=== PATIENT | male | born 1990 | race Caucasian/White ===

== ENCOUNTER 2019-05-25 05:15 | Emergency (ER) | payer MEDICAID ==
[~2019-05-25] VITALS: Ht 180.3 cm; Wt 86.3 kg
[~2019-05-25 05:15] MED LIST: FOLI-17 PO; MAGN400T50 PO; MULT-750 PO; ONDA4TAB13 SL; PANT40TA5 PO; THIA100T67 PO; TRAM50TA2 PO
[2019-05-25] MEDS ORDERED: SODIUM CHLORIDE FLUSH 10ML SYR IVF ONE (05:30)
[2019-05-25] MEDS ORDERED: ONDANSETRON 2MG/ML, 2ML IVPush ONE (05:30)
[2019-05-25] MEDS ORDERED: MORPHINE SULFATE 4 MG/ML, 1ML ONE ×2 (05:34→06:06)
[2019-05-25] MEDS ORDERED: ONDANSETRON 2MG/ML, 2ML ONE (05:34)
[2019-05-25] MEDS: MORPHINE SULFATE 4 MG/ML, 1ML IVPush PRN ×2 (05:47→06:11)
[2019-05-25 05:57] LABS: BASOPHILS # (AUTO) 0.04 x10^3/uL (0-0.1); BASOPHILS % (AUTO) 1 % (0-1); EOSINOPHILS # (AUTO) 0.02 x10^3/uL (0-0.4); EOSINOPHILS % (AUTO) 0 % (1-7); LYMPHOCYTES # (AUTO) 1.61 x10^3/uL (1-3.4); LYMPHOCYTES % (AUTO) 26 % (22-44); MD NO; MEAN CORPUSCULAR HEMOGLOBIN 31.1 pg (27.5-34.5); MEAN CORPUSCULAR HGB CONC 33.9 g/dL (33.2-36.2); MEAN CORPUSCULAR VOLUME 91.6 fL (81-97); MEAN PLATELET VOLUME 8.2 fL (7.4-10.4); MONOCYTES # (AUTO) 0.82 x10^3/uL (0.2-0.8); MONOCYTES % (AUTO) 13 % (2-9); NEUTROPHILS # (AUTO) 3.72 x10^3/uL (1.8-6.8); NEUTROPHILS % (AUTO) 60 % (42-75); PLATELET COUNT 291 x10^3/uL (130-400); RED BLOOD COUNT 4.82 x10^6/uL (4.38-5.82); RED CELL DISTRIBUTION WIDTH 13.3 % (9.4-14.8)
[2019-05-25] MEDS ORDERED: SODIUM CHLORIDE 0.9% 1,000ML IVBOLUS ONE (06:00)
[2019-05-25 06:03] LABS: ALBUMIN 3.9 g/dL (3.4-5.0); ANION GAP 11 mmol/L (5-15); CALCIUM 8.9 mg/dL (8.5-10.1); CHLORIDE 102 mmol/L (98-107)
[2019-05-25 06:07] LABS: ALANINE AMINOTRANSFERASE 42 U/L (12-78); ALKALINE PHOSPHATASE 81 U/L (45-117); BILIRUBIN,TOTAL 0.9 mg/dL (0.2-1.0); CREATININE 0.82 mg/dL (0.7-1.3)
[2019-05-25] MEDS ORDERED: MAALOX/HYOSCYAMINE/LIDOCAINE 45 ML BTL ONE (06:28)
[2019-05-25] MEDS ORDERED: MAALOX/HYOSCYAMINE/LIDOCAINE 45 ML BTL PO ONE (06:30)
--- NOTE | 2019-05-25 06:39 | NUR ---
PT RESTING COMFORTABLY. SO AT BEDSIDE. MONITOR IN PLACE.
[2019-05-25] MEDS ORDERED: OMNIPAQUE 350 MG/ML, 100ML BOTTLE ONE (06:42)
[2019-05-25 06:51] VITALS: BP 131/66
[2019-05-25 06:59] LABS: MICROSCOPIC INDICATED
[2019-05-25 07:01] LABS: CULTURE INDICATED? NO
--- NOTE | 2019-05-25 07:10 | NUR ---
ALL RESULTS BACK AT THIS TIME. CHART UP FOR RECHECK. PT RESTING IN ROOM WITH SO AT BS. NO NEEDS EXPRESSED.
--- NOTE | 2019-05-25 07:30 | NUR ---
PT STATES INCREASING PAIN "BETWEEN LEGS." PT STATES HE ISN'T READY FRO DC. HITESH COX AND CAYDEN SALMERON NOTIFIED. AWAITING FURTHER ORDERS OR DISPO.
--- NOTE | 2019-05-25 07:43 | NUR ---
PER DR. SALMERON, PLAN FOR MEDS AND DC.
[2019-05-25] MEDS ORDERED: PANTOPRAZOLE 40 MG IV ONE (07:47)
[2019-05-25] MEDS ORDERED: PANTOPRAZOLE 40 MG IV IVPush ONE (08:00)
== END 2019-05-25 08:10 | disposition home or self-care (01) ==
LOC: ED 06:07
DX: K29.01 Acute gastritis with bleeding (principal); R11.2 Nausea with vomiting, unspecified
CPT/HCPCS: 36415; 74177; 80053; 81001; 83690; 85025; 93005; 96361; 96374; 96375; 99285; C9113; J2270; J2405; J7030; Q9967

== ENCOUNTER 2019-05-25 13:16 | Emergency (ER) | payer MEDICAID ==
[~2019-05-25] VITALS: Ht 180.3 cm; Wt 86.5 kg
[2019-05-25] MEDS ORDERED: ONDANSETRON ODT 4 MG ONE (14:15)
[2019-05-25] MEDS ORDERED: ONDANSETRON ODT 4 MG PO ONE (14:30)
--- NOTE | 2019-05-25 14:34 | NUR ---
PT PROVIDED WITH ICE WATER FOR PO CHALLENGE. DENIES ANY CURRENT NAUSEA POST MEDICATION.
--- NOTE | 2019-05-25 15:01 | NUR ---
PT DRANK ALL OF HIS WATER, HAS HAD NO EMESIS. STATES HE STILL FEELS "ACHY" IN HIS THIGHS, BUT DENIES NAUSEA.
--- NOTE | 2019-05-25 15:19 | NUR ---
REPORT RECEIVED FROM ADAN WINSLOW.
[2019-05-25 15:29] VITALS: BP 142/72
== END 2019-05-25 15:43 | disposition home or self-care (01) ==
LOC: ED 13:39
DX: K29.20 Alcoholic gastritis without bleeding (principal); F10.10 Alcohol abuse, uncomplicated; F17.200 Nicotine dependence, unspecified, uncomplicated; Y90.0 Blood alcohol level of less than 20 mg/100 ml
CPT/HCPCS: 80047; 99283; Q0162

== ENCOUNTER 2019-06-10 18:04 | Emergency (ER) | payer MEDICAID ==
[~2019-06-10] VITALS: Ht 180.3 cm; Wt 83.5 kg
[2019-06-10 18:06] VITALS: BP 145/89
[2019-06-10] MEDS ORDERED: FAMOTIDINE 20 MG/2 ML ONE (18:57)
[2019-06-10] MEDS ORDERED: HYDROmorphone 1 MG/ML, 1ML INJ ONE (18:57)
[2019-06-10] MEDS ORDERED: LORazepam 2 MG/ML, 1ML ONE (18:57)
[2019-06-10] MEDS ORDERED: MAALOX/HYOSCYAMINE/LIDOCAINE 45 ML BTL ONE (18:57)
[2019-06-10] MEDS ORDERED: HYDROmorphone 2 MG/ML, 1ML IVPush ONE (19:00)
[2019-06-10] MEDS ORDERED: SODIUM CHLORIDE FLUSH 10ML SYR IVF ONE (19:00)
[2019-06-10] MEDS ORDERED: LORazepam 2 MG/ML, 1ML IV ONE (19:00)
[2019-06-10] MEDS ORDERED: FAMOTIDINE 20 MG/2 ML IVPush ONE (19:00)
[2019-06-10] MEDS ORDERED: SODIUM CHLORIDE 0.9% 1,000ML IVBOLUS ONE (19:00)
[2019-06-10] MEDS ORDERED: MAALOX/HYOSCYAMINE/LIDOCAINE 45 ML BTL PO ONE (19:00)
[2019-06-10 19:06] LABS: ALANINE AMINOTRANSFERASE 110 U/L (12-78); ALBUMIN 4.6 g/dL (3.4-5.0); ANION GAP 19 mmol/L (5-15); CALCIUM 9.5 mg/dL (8.5-10.1); CHLORIDE 98 mmol/L (98-107); CREATININE 0.95 mg/dL (0.7-1.3)
[2019-06-10 19:08] LABS: ALKALINE PHOSPHATASE 98 U/L (45-117); TOTAL PROTEIN 8.7 g/dL (6.4-8.2)
[2019-06-10 19:10] LABS: BASOPHILS # (AUTO) 0.05 x10^3/uL (0-0.1); BASOPHILS % (AUTO) 1 % (0-1); EOSINOPHILS % (AUTO) 0 % (1-7); LYMPHOCYTES # (AUTO) 0.91 x10^3/uL (1-3.4); LYMPHOCYTES % (AUTO) 11 % (22-44); MD NO; MEAN CORPUSCULAR HEMOGLOBIN 31.3 pg (27.5-34.5); MEAN PLATELET VOLUME 8.4 fL (7.4-10.4); MONOCYTES # (AUTO) 0.44 x10^3/uL (0.2-0.8); MONOCYTES % (AUTO) 5 % (2-9); NEUTROPHILS # (AUTO) 7.16 x10^3/uL (1.8-6.8); NEUTROPHILS % (AUTO) 84 % (42-75); PLATELET COUNT 280 x10^3/uL (130-400); RED BLOOD COUNT 4.98 x10^6/uL (4.38-5.82); RED CELL DISTRIBUTION WIDTH 13.8 % (9.4-14.8)
== END 2019-06-10 20:05 | disposition home or self-care (01) ==
LOC: ED 18:29
DX: K20.9 Esophagitis, unspecified (principal); R07.89 Other chest pain; R11.2 Nausea with vomiting, unspecified; F10.129 Alcohol abuse with intoxication, unspecified; Y90.9 Presence of alcohol in blood, level not specified
CPT/HCPCS: 36415; 80053; 80307; 83690; 83735; 85025; 93005; 96361; 96374; 96375; 99284; J1170; J2060; J3490; J7030

== ENCOUNTER 2019-07-03 10:28 | Emergency (ER) | payer MEDICAID ==
[~2019-07-03] VITALS: Ht 180.3 cm; Wt 97.8 kg
--- NOTE | 2019-07-03 10:43 | NUR ---
PT CAME IN CO RLQ ABD PAIN X 5 DAYS. PT STATES HE HAS URINATED BLOOD. PT DENIES TRAUMA. PROVIDER IS BEDSIDE FOR ASSESSMENT.
[2019-07-03] MEDS ORDERED: KETOROLAC 30 MG/1 ML ONE (10:47)
[2019-07-03] MEDS ORDERED: ONDANSETRON ODT 4 MG ONE (10:47)
[2019-07-03] MEDS ORDERED: KETOROLAC 30 MG/1 ML IM ONE (11:00)
[2019-07-03] MEDS ORDERED: ONDANSETRON ODT 4 MG PO ONE (11:00)
[2019-07-03 11:23] LABS: BASOPHILS # (AUTO) 0.05 x10^3/uL (0-0.1); BASOPHILS % (AUTO) 1 % (0-1); EOSINOPHILS # (AUTO) 0.01 x10^3/uL (0-0.4); EOSINOPHILS % (AUTO) 0 % (1-7); LYMPHOCYTES # (AUTO) 0.91 x10^3/uL (1-3.4); LYMPHOCYTES % (AUTO) 14 % (22-44); MD NO; MEAN CORPUSCULAR HEMOGLOBIN 31.2 pg (27.5-34.5); MEAN CORPUSCULAR HGB CONC 33.4 g/dL (33.2-36.2); MEAN CORPUSCULAR VOLUME 93.4 fL (81-97); MEAN PLATELET VOLUME 8.4 fL (7.4-10.4); MONOCYTES # (AUTO) 0.44 x10^3/uL (0.2-0.8); MONOCYTES % (AUTO) 7 % (2-9); NEUTROPHILS # (AUTO) 4.91 x10^3/uL (1.8-6.8); NEUTROPHILS % (AUTO) 78 % (42-75); PLATELET COUNT 236 x10^3/uL (130-400); RED BLOOD COUNT 5.27 x10^6/uL (4.38-5.82); RED CELL DISTRIBUTION WIDTH 14.9 % (9.4-14.8)
[2019-07-03 11:34] LABS: ALBUMIN 4.5 g/dL (3.4-5.0); CHLORIDE 103 mmol/L (98-107)
[2019-07-03 11:36] LABS: ANION GAP 14 mmol/L (5-15); CALCIUM 9.5 mg/dL (8.5-10.1)
[2019-07-03] MEDS ORDERED: LORazepam 1MG TABLET ONE (11:48)
--- NOTE | 2019-07-03 11:53 | NUR ---
PT MEDICATED PER MAR
[2019-07-03] MEDS ORDERED: LORazepam 1MG TABLET PO ONE (12:00)
[2019-07-03 12:38] LABS: MICROSCOPIC AUTO
[2019-07-03 12:39] LABS: CULTURE INDICATED? YES
--- NOTE | 2019-07-03 12:48 | NUR ---
PT RETURNED FROM US. RESTING IN [facility]. VSS.
[2019-07-03] MEDS ORDERED: AZITHROMYCIN 500 MG TABLET PO ONE (13:00)
[2019-07-03] MEDS ORDERED: CEFTRIAXONE 250 MG IM ONE (13:00)
[2019-07-03] MEDS ORDERED: AZITHROMYCIN 500 MG TABLET ONE (13:08)
[2019-07-03] MEDS ORDERED: CEFTRIAXONE 1,000 MG ONE (13:08)
[2019-07-03 13:40] VITALS: BP 128/88
--- NOTE | 2019-07-03 13:41 | NUR ---
PT GIVEN DC INTSTRUCTIONS. PT VERBALIZED UNDERSTANDING
== END 2019-07-03 14:00 | disposition home or self-care (01) ==
LOC: ED 11:28
DX: R30.0 Dysuria (principal); R31.9 Hematuria, unspecified; K76.0 Fatty (change of) liver, not elsewhere classified; M43.06 Spondylolysis, lumbar region
CPT/HCPCS: 36415; 74176; 76870; 80048; 81001; 82040; 85025; 87086; 87491; 87591; 96372; 99285; J0696; J1885; Q0162

== ENCOUNTER 2020-03-10 10:27 | Inpatient (IN) | payer MEDICAID ==
[~2020-03-10] VITALS: Ht 180.3 cm; Wt 93.4 kg
[~2020-03-10 10:27] MED LIST changes: -PANT40TA5 PO; +PANT40TA6 PO
--- NOTE | 2020-03-10 11:00 | NUR ---
director of strategic initiatives note: Pt to room from lobby.
--- NOTE | 2020-03-10 11:21 | NUR ---
PT COMES IN C/O N/V, TREMORS. STATES HE IS TRYING TO QUIT DRINKING AND IS GOING THROUGHT WITHDRAWALS. 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 STATES HIS LAST DRINK WAS YESTERDAY MORNING AND WAS 4-5OZ OF VODKA. MONITORS CONNECTED. CALL LIGHT W/IN REACH.
--- NOTE | 2020-03-10 11:29 | NUR ---
PT STATES HE IS UNABLE TO KEEP ANY LIQUID OR FOOD DOWN. PT STATES HE HAS BEEN VOMITING MULTIPLE TIMES IN THE PAST 14HOURS. STATES HX OF PANCREATITIS AND IS C/O RIGHT UPPER QUADRANT 7/10 ABDOMINAL PAIN.
[2020-03-10] MEDS ORDERED: PANTOPRAZOLE 40 MG IV ONE (11:52)
[2020-03-10] MEDS ORDERED: ONDANSETRON 2MG/ML, 2ML ONE ×2 (11:52→13:39)
[2020-03-10] MEDS ORDERED: LORazepam 2 MG/ML, 1ML ONE (11:53)
[2020-03-10] MEDS ORDERED: SODIUM CHLORIDE 0.9% 1,000ML IVBOLUS ONE ×2 (12:00→13:30)
[2020-03-10] MEDS ORDERED: THIAMINE 100MG TABLET PO ONE (12:00)
[2020-03-10] MEDS ORDERED: SODIUM CHLORIDE FLUSH 10ML SYR IVF ONE (12:00)
[2020-03-10] MEDS ORDERED: LORazepam 2 MG/ML, 1ML IVPush PRN (12:00)
[2020-03-10] MEDS ORDERED: ONDANSETRON 2MG/ML, 2ML IVPush ONE ×2 (12:00→14:00)
[2020-03-10] MEDS ORDERED: PANTOPRAZOLE 40 MG IV IVPush SCH (12:00)
[2020-03-10] MEDS ORDERED: THIAMINE 100MG TABLET ONE (12:06)
[2020-03-10 12:16] LABS: BASOPHILS % (AUTO) 1 % (0-1); EOSINOPHILS % (AUTO) 0 % (1-7); LYMPHOCYTES % (AUTO) 2 % (22-44); MEAN CORPUSCULAR HEMOGLOBIN 30.2 pg (27.5-34.5); MEAN CORPUSCULAR HGB CONC 33.9 g/dL (33.2-36.2); MEAN PLATELET VOLUME 8.5 fL (7.4-10.4); MONOCYTES % (AUTO) 5 % (2-9); NEUTROPHILS % (AUTO) 93 % (42-75); PLATELET COUNT 311 x10^3/uL (130-400); RED BLOOD COUNT 5.29 x10^6/uL (4.38-5.82)
[2020-03-10 12:28] LABS: ALANINE AMINOTRANSFERASE 38 U/L (12-78); ALBUMIN 4.6 g/dL (3.4-5.0); CALCIUM 9.6 mg/dL (8.5-10.1); CHLORIDE 96 mmol/L (98-107); CREATININE 1.83 mg/dL (0.7-1.3)
[2020-03-10 12:30] LABS: ALKALINE PHOSPHATASE 84 U/L (45-117); BILIRUBIN,TOTAL 1.3 mg/dL (0.2-1.0); TOTAL PROTEIN 8.5 g/dL (6.4-8.2)
[2020-03-10 12:52] LABS: MD SCAN
[2020-03-10 13:04] LABS: ANION GAP 25 mmol/L (5-15)
[2020-03-10 13:13] LABS: ACETONE, SERUM Large (80mg/dL) (Negative)
[2020-03-10] MEDS ORDERED: SODIUM CHLORIDE 0.9% 1,000 ML IV ONE (13:30)
[2020-03-10] MEDS ORDERED: ACETAMINOPHEN 325 MG TABLET ONE (13:39)
--- NOTE | 2020-03-10 13:56 | NUR ---
PT SITTING UP IN BED. ORDERED MEDICATION ADMINISTERED. NAD. CALL LIGHT W/IN REACH. WILL CONTINUE TO MONITOR
[2020-03-10] MEDS ORDERED: ACETAMINOPHEN 325 MG TABLET PO ONE (14:00)
--- NOTE | 2020-03-10 14:16 | NUR ---
REPORT GIVEN TO MANPREET WINSLOW
[2020-03-10 14:54] VITALS: BP 133/77
[2020-03-10] MEDS ORDERED: ONDANSETRON ODT 4 MG PO PRN (15:30)
[2020-03-10] MEDS ORDERED: LORazepam 1MG TABLET PO PRN ×3 (15:30)
[2020-03-10] MEDS ORDERED: LABETALOL 5MG/ML, 20ML IVPush PRN (15:30)
[2020-03-10] MEDS ORDERED: ONDANSETRON 2MG/ML, 2ML IVPush PRN (15:30)
[2020-03-10] MEDS ORDERED: BISACODYL 10 MG SUPP PR PRN (15:30)
[2020-03-10] MEDS ORDERED: ACETAMINOPHEN 325 MG TABLET PO PRN (15:30)
[2020-03-10] MEDS ORDERED: POLYETHYLENE GLYCOL 17 GM PACKET PO PRN (15:30)
[2020-03-10] MEDS ORDERED: DOCUSATE 100 MG CAPSULE PO PRN (15:30)
[2020-03-10] MEDS ORDERED: PROMETHAZINE 25 MG/ML, 1ML IM PRN (15:30)
[2020-03-10] MEDS ORDERED: CHLORDIAZEPOXIDE 25 MG CAPSULE PO SCH (15:30)
[2020-03-10] MEDS ORDERED: LORazepam 2 MG/ML, 1ML IV PRN ×3 (15:30)
[2020-03-10] MEDS: CHLORDIAZEPOXIDE 25 MG CAPSULE PO SCH ×2 (15:43→21:44)
[2020-03-10] MEDS: HEPARIN 5,000 UNITS/ML, 1ML SQ SCH (15:43)
[2020-03-10] MEDS ORDERED: SODIUM CHLORIDE 0.9% IV SCH (16:00)
[2020-03-10] MEDS ORDERED: FOLIC ACID IV SCH (16:00)
[2020-03-10] MEDS ORDERED: THIAMINE 200 MG, FOLIC ACID 1 MG, MVI ADULT 10 ML in SODIUM CHLORIDE 0.9% 1,000 ML IV SCH (16:00)
[2020-03-10] MEDS ORDERED: THIAMINE IV SCH (16:00)
[2020-03-10] MEDS: MAALOX/HYOSCYAMINE/LIDOCAINE 45 ML BTL PO PRN (16:06)
[2020-03-10] MEDS: LORazepam 0.5MG TABLET PO PRN (17:10)
[2020-03-10 18:40] VITALS: BP 123/71
[2020-03-10 22:39] LABS: MICROSCOPIC AUTO
[2020-03-11] MEDS: MAALOX/HYOSCYAMINE/LIDOCAINE 45 ML BTL PO PRN ×3 (00:28→22:02)
[2020-03-11] MEDS: HEPARIN 5,000 UNITS/ML, 1ML SQ SCH ×4 (00:28→23:30)
[2020-03-11 01:11] VITALS: BP 130/76
[2020-03-11] MEDS: CHLORDIAZEPOXIDE 25 MG CAPSULE PO SCH ×4 (03:13→22:05)
[2020-03-11 05:23] LABS: BASOPHILS % (AUTO) 1 % (0-1); EOSINOPHILS % (AUTO) 0 % (1-7); LYMPHOCYTES % (AUTO) 10 % (22-44); MEAN CORPUSCULAR HEMOGLOBIN 30.7 pg (27.5-34.5); MEAN CORPUSCULAR HGB CONC 34.1 g/dL (33.2-36.2); MEAN PLATELET VOLUME 8.4 fL (7.4-10.4); MONOCYTES % (AUTO) 6 % (2-9); NEUTROPHILS % (AUTO) 83 % (42-75); PLATELET COUNT 216 x10^3/uL (130-400); RED BLOOD COUNT 4.67 x10^6/uL (4.38-5.82); RED CELL DISTRIBUTION WIDTH 14.3 % (9.4-14.8)
[2020-03-11 05:25] LABS: MD NO
[2020-03-11 05:31] LABS: ANION GAP 4 mmol/L (5-15); CALCIUM 8.9 mg/dL (8.5-10.1); CHLORIDE 108 mmol/L (98-107); CREATININE 1.26 mg/dL (0.7-1.3)
[2020-03-11] MEDS: PANTOPRAZOLE 40MG TABLET PO SCH (06:32)
[2020-03-11] MEDS ORDERED: MAGNESIUM SULFATE PMX 2GM/50ML 50 ML IV ONE (08:00)
[2020-03-11] MEDS ORDERED: POTASSIUM CHLORIDE 20 MEQ TAB.ER.PRT PO ONE (08:00)
[2020-03-11 08:05] VITALS: BP 132/83
[2020-03-11] MEDS ORDERED: LACTATED RINGERS 1,000 ML IV SCH (09:00)
[2020-03-11] MEDS: THIAMINE 100MG TABLET PO SCH ×2 (10:10→21:05)
[2020-03-11] MEDS: K-PHOS NEUTRAL 250MG TAB PO SCH ×2 (10:10→21:05)
[2020-03-11] MEDS: MULTIVITAMIN 1 TABLET PO SCH (10:10)
[2020-03-11] MEDS: FOLIC ACID 1 MG TABLET PO SCH (10:10)
[2020-03-11 12:53] VITALS: BP 130/84
[2020-03-11 21:17] VITALS: BP 123/81
[2020-03-12 02:03] VITALS: BP 126/80
[2020-03-12] MEDS: CHLORDIAZEPOXIDE 25 MG CAPSULE PO SCH ×4 (05:39→23:02)
[2020-03-12] MEDS: PANTOPRAZOLE 40MG TABLET PO SCH (05:39)
[2020-03-12 06:22] LABS: BASOPHILS % (AUTO) 1 % (0-1); EOSINOPHILS % (AUTO) 1 % (1-7); LYMPHOCYTES % (AUTO) 28 % (22-44); MEAN CORPUSCULAR HEMOGLOBIN 30.8 pg (27.5-34.5); MEAN CORPUSCULAR HGB CONC 34.3 g/dL (33.2-36.2); MEAN PLATELET VOLUME 8.9 fL (7.4-10.4); MONOCYTES % (AUTO) 9 % (2-9); NEUTROPHILS % (AUTO) 62 % (42-75); PLATELET COUNT 178 x10^3/uL (130-400); RED BLOOD COUNT 4.63 x10^6/uL (4.38-5.82)
[2020-03-12 06:28] LABS: MD NO
[2020-03-12 06:30] LABS: ANION GAP 6 mmol/L (5-15); CALCIUM 8.6 mg/dL (8.5-10.1); CHLORIDE 105 mmol/L (98-107); CREATININE 0.83 mg/dL (0.7-1.3)
[2020-03-12] MEDS: THIAMINE 100MG TABLET PO SCH ×2 (08:12→20:50)
[2020-03-12] MEDS: MULTIVITAMIN 1 TABLET PO SCH (08:12)
[2020-03-12] MEDS: K-PHOS NEUTRAL 250MG TAB PO SCH ×2 (08:12→20:50)
[2020-03-12] MEDS: FOLIC ACID 1 MG TABLET PO SCH (08:13)
[2020-03-12] MEDS: HEPARIN 5,000 UNITS/ML, 1ML SQ SCH ×2 (08:13→16:31)
[2020-03-12 08:20] VITALS: BP 133/84
[2020-03-12 10:02] VITALS: BP 133/84
[2020-03-12] MEDS ORDERED: POTASSIUM PHOSPHATE 22 MEQ in SODIUM CHLORIDE 0.9% 250 ML IV ONE (10:30)
[2020-03-12 14:15] VITALS: BP 128/80
[2020-03-12] MEDS: LORazepam 0.5MG TABLET PO PRN (16:06)
[2020-03-12] MEDS ORDERED: POTASSIUM CHLORIDE 20 MEQ TAB.ER.PRT PO SCH (17:00)
[2020-03-12 20:47] VITALS: BP 133/80
[2020-03-13 00:45] VITALS: BP 117/77
[2020-03-13] MEDS: LORazepam 0.5MG TABLET PO PRN (00:49)
[2020-03-13] MEDS: HEPARIN 5,000 UNITS/ML, 1ML SQ SCH ×2 (00:49→07:20)
[2020-03-13] MEDS ORDERED: PROTONIX MC SCH (02:30)
[2020-03-13] MEDS: PANTOPRAZOLE 40MG TABLET PO SCH (05:30)
[2020-03-13] MEDS: CHLORDIAZEPOXIDE 25 MG CAPSULE PO SCH (05:30)
[2020-03-13 07:18] VITALS: BP 129/85
[2020-03-13] MEDS: FOLIC ACID 1 MG TABLET PO SCH (07:20)
[2020-03-13] MEDS: THIAMINE 100MG TABLET PO SCH (07:20)
[2020-03-13] MEDS: MULTIVITAMIN 1 TABLET PO SCH (07:20)
== END 2020-03-13 11:00 | disposition home or self-care (01) | DRG 683 ==
LOC: ED 12:24 → EDIP 13:45 → 5SO 15:09 → 3N 03-11 10:29 → DCLOUNGE 03-13 10:55
PROVIDERS: ADMIT Hospitalist; ATTEND Hospitalist
DX: N17.9 Acute kidney failure, unspecified (principal); E87.2 Acidosis; F10.139 Alcohol abuse with withdrawal, unspecified; E83.39 Other disorders of phosphorus metabolism; E83.42 Hypomagnesemia; F17.220 Nicotine dependence, chewing tobacco, uncomplicated; E86.0 Dehydration; E86.1 Hypovolemia; E87.6 Hypokalemia; F12.90 Cannabis use, unspecified, uncomplicated; F41.9 Anxiety disorder, unspecified; I10 Essential (primary) hypertension; K76.0 Fatty (change of) liver, not elsewhere classified; R00.0 Tachycardia, unspecified; R73.9 Hyperglycemia, unspecified; D72.829 Elevated white blood cell count, unspecified; K29.20 Alcoholic gastritis without bleeding
CPT/HCPCS: 36415; 71045; 80048; 80053; 80320; 81001; 82010; 83036; 83605; 83690; 83735; 84100; 85025; 93005; G0378; J1644; J2405; J3411; C9113; G0480; J2060; J3475; J7030; J7050; J7120

== ENCOUNTER 2020-06-04 03:39 | Emergency (ER) | payer MEDICAID ==
[~2020-06-04] VITALS: Ht 180.3 cm; Wt 89.1 kg
[~2020-06-04 03:39] MED LIST changes: -FOLI-17 PO; +FOLI1TAB32 PO; +MULT-482 PO; -MULT-750 PO
--- NOTE | 2020-06-04 03:55 | NUR ---
asumed care of pt. pt BIB [facility] from home c/o RUQ pain and ETOH withdrawl. per pt, he has a hx of intermittent binge drinking and his lst ETOH drink ws 15 hours ago. pt is A&O x4. states that he is having soem nausea and feeling a little dizzy/having vertigo. pt reports that this is the way that he feels sometimes before a withdrawl seizure. no tremulous activity noted. no vomiting. pink warm and dry. no resp. distress. no family at bedside seizure precautions put into place for pt safety
[2020-06-04] MEDS ORDERED: LORazepam 2 MG/ML, 1ML IVPush PRN (04:00)
[2020-06-04] MEDS ORDERED: LORazepam 2 MG/ML, 1ML IVPush ONE (04:00)
[2020-06-04] MEDS ORDERED: THIAMINE 100 MG/ML, 2ML IM ONE (04:00)
[2020-06-04] MEDS ORDERED: SODIUM CHLORIDE FLUSH 10ML SYR IVF ONE (04:00)
[2020-06-04] MEDS ORDERED: ONDANSETRON 2MG/ML, 2ML IVPush ONE (04:00)
[2020-06-04] MEDS ORDERED: PROMETHAZINE 25 MG/ML, 1ML IM ONE (04:00)
[2020-06-04] MEDS ORDERED: SODIUM CHLORIDE 0.9% 1,000ML IVBOLUS ONE (04:00)
[2020-06-04 04:01] LABS: BASOPHILS % (AUTO) 1 % (0-1); EOSINOPHILS % (AUTO) 0 % (1-7); LYMPHOCYTES % (AUTO) 6 % (22-44); MEAN CORPUSCULAR HEMOGLOBIN 29.8 pg (27.5-34.5); MEAN CORPUSCULAR HGB CONC 33.9 g/dL (33.2-36.2); MEAN PLATELET VOLUME 8.6 fL (7.4-10.4); MONOCYTES % (AUTO) 3 % (2-9); NEUTROPHILS % (AUTO) 91 % (42-75); PLATELET COUNT 279 x10^3/uL (130-400); RED BLOOD COUNT 5.47 x10^6/uL (4.38-5.82); RED CELL DISTRIBUTION WIDTH 14.5 % (9.4-14.8)
[2020-06-04 04:03] LABS: MD NO
[2020-06-04 04:09] LABS: ALANINE AMINOTRANSFERASE 160 U/L (12-78); ALBUMIN 4.7 g/dL (3.4-5.0); ANION GAP 22 mmol/L (5-15); CALCIUM 9.5 mg/dL (8.5-10.1); CHLORIDE 97 mmol/L (98-107); CREATININE 0.99 mg/dL (0.7-1.3)
[2020-06-04 04:12] LABS: ALKALINE PHOSPHATASE 95 U/L (45-117); BILIRUBIN,TOTAL 0.8 mg/dL (0.2-1.0); TOTAL PROTEIN 8.7 g/dL (6.4-8.2)
[2020-06-04 04:30] VITALS: BP 132/81
--- NOTE | 2020-06-04 04:30 | NUR ---
pt medicated per order. resting in position of comfort. pt updated on POC
[2020-06-04] MEDS ORDERED: ONDANSETRON 2MG/ML, 2ML ONE (04:32)
[2020-06-04] MEDS ORDERED: LORazepam 2 MG/ML, 1ML ONE (04:33)
--- NOTE | 2020-06-04 04:59 | NUR ---
IV infusing. report to Carlie WINSLOW
[2020-06-04] MEDS ORDERED: THIAMINE 100 MG/ML, 2ML ONE (05:11)
[2020-06-04] MEDS ORDERED: PROMETHAZINE 25 MG/ML, 1ML ONE ×2 (05:11→05:12)
[2020-06-04] MEDS ORDERED: MAALOX/HYOSCYAMINE/LIDOCAINE 45 ML BTL ONE (05:35)
[2020-06-04] MEDS ORDERED: MAALOX/HYOSCYAMINE/LIDOCAINE 45 ML BTL PO ONE (06:00)
== END 2020-06-04 06:05 | disposition home or self-care (01) ==
LOC: ED 05:21
DX: K29.20 Alcoholic gastritis without bleeding (principal); F10.220 Alcohol dependence with intoxication, uncomplicated; R11.2 Nausea with vomiting, unspecified; R42 Dizziness and giddiness; R10.13 Epigastric pain; Z87.891 Personal history of nicotine dependence; Y90.0 Blood alcohol level of less than 20 mg/100 ml
CPT/HCPCS: 36415; 80053; 80320; 83690; 85025; 96361; 96372; 96374; 96375; 99284; J2060; J2405; J2550; J3411; J7030; G0480

== ENCOUNTER 2020-11-13 15:33 | Inpatient (IN) | payer MEDICAID ==
[~2020-11-13] VITALS: Ht 180.3 cm; Wt 95.3 kg
[2020-11-13 16:24] LABS: BASOPHILS % (AUTO) 1 % (0-1); EOSINOPHILS % (AUTO) 0 % (1-7); LYMPHOCYTES % (AUTO) 4 % (22-44); MEAN CORPUSCULAR HEMOGLOBIN 31.5 pg (27.5-34.5); MEAN PLATELET VOLUME 8.7 fL (7.4-10.4); MONOCYTES % (AUTO) 3 % (2-9); NEUTROPHILS % (AUTO) 93 % (42-75); PLATELET COUNT 395 x10^3/uL (130-400); RED BLOOD COUNT 5.44 x10^6/uL (4.38-5.82); RED CELL DISTRIBUTION WIDTH 14.9 % (9.4-14.8)
[2020-11-13] MEDS ORDERED: LORazepam 1MG TABLET PO ONE (16:30)
[2020-11-13] MEDS ORDERED: THIAMINE 100MG TABLET PO ONE (16:30)
[2020-11-13 16:35] LABS: ALANINE AMINOTRANSFERASE 114 U/L (12-78); ALBUMIN 4.8 g/dL (3.4-5.0); ANION GAP 23 mmol/L (5-15); CALCIUM 10.2 mg/dL (8.5-10.1); CHLORIDE 89 mmol/L (98-107); CREATININE 1.17 mg/dL (0.7-1.3)
[2020-11-13 16:38] LABS: ALKALINE PHOSPHATASE 114 U/L (45-117); BILIRUBIN,TOTAL 0.8 mg/dL (0.2-1.0); TOTAL PROTEIN 9.9 g/dL (6.4-8.2)
[2020-11-13] MEDS ORDERED: LORazepam 1MG TABLET ONE (20:02)
[2020-11-13] MEDS ORDERED: THIAMINE 100MG TABLET ONE (20:03)
--- NOTE | 2020-11-13 20:30 | NUR ---
PT HERE FOR ETOH WITHDRAW SYMPTOMS. PT DAHIANA, HR 120'S-140'S, AND PT STATES "I FEEL LIKE IM CLOSE TO HAVING A SEIZURE SINCE I'VE HAD THEM IN THE PAST". STATES HE USUALLY DRINKS 2-3 PINTS A DAY BUT THIS AM ONLY HAD 1/2 PINT AND STATES " I WANT TO QUIT". PT WITH PLEASANT AFFECT. ORIENTED X 4.
--- NOTE | 2020-11-13 20:40 | NUR ---
Nohelia rogers in ED - 11/13/20 at 2042 by ALEXANDRO PT JOHNNY PARNELL ENOUTE TO PICK PT UP. HER NUMBER IS [phone]
--- NOTE | 2020-11-13 20:41 | NUR ---
CHARTED ON INCORRECT PT
[2020-11-13] MEDS ORDERED: LORazepam 2 MG/ML, 1ML IVPush ONE (21:30)
[2020-11-13] MEDS ORDERED: SODIUM CHLORIDE FLUSH 10ML SYR IVF ONE (21:30)
[2020-11-13] MEDS ORDERED: SODIUM CHLORIDE 0.9% 1,000ML IVBOLUS ONE ×2 (21:30→23:30)
[2020-11-13] MEDS ORDERED: LORazepam 2 MG/ML, 1ML ONE ×2 (21:55→23:30)
--- NOTE | 2020-11-13 22:00 | NUR ---
PT VOMITED MEDS "ABOUT 20 SECONDS AFTER I TOOK THEM". MD AWARE, HAS ORDER PLACED FOR IV MEDS.
--- NOTE | 2020-11-13 22:21 | NUR ---
PT HAS ABOUT 200 CC OF BLACK/MAROON EMESIS AT BEDSIDE. EMESIS TESTED WIH BLOOD, POSTIVIE ON OCCULT STRIP FOR BLOOD. AWARE. PT ALSO REPORTS "COFFEE GROUNDS VOMIT" AT HOME.
[2020-11-13] MEDS ORDERED: ONDANSETRON 2MG/ML, 2ML ONE (22:23)
[2020-11-13] MEDS ORDERED: ONDANSETRON 2MG/ML, 2ML IVPush ONE (22:30)
[2020-11-13] MEDS ORDERED: PANTOPRAZOLE 40 MG IV IVPush ONE (22:30)
[2020-11-13] MEDS ORDERED: PANTOPRAZOLE 40 MG IV ONE (23:17)
[2020-11-13] MEDS ORDERED: THIAMINE 200 MG in SODIUM CHLORIDE 0.9% 50 ML IV ONE (23:30)
[2020-11-13] MEDS ORDERED: PANTOPRAZOLE 80 MG in SODIUM CHLORIDE 0.9% 50 ML IV ONE (23:30)
[2020-11-13] MEDS: LORazepam 2 MG/ML, 1ML IVPush PRN (23:39)
--- NOTE | 2020-11-14 00:02 | NUR ---
PT NOW SLEEPING. RESP EVEN AND UNLABORED.
[2020-11-14] MEDS ORDERED: ONDANSETRON 2MG/ML, 2ML IVPush PRN (01:00)
[2020-11-14] MEDS ORDERED: POLYETHYLENE GLYCOL 17 GM PACKET PO PRN (01:00)
[2020-11-14] MEDS ORDERED: BISACODYL 10 MG SUPP PR PRN (01:00)
[2020-11-14] MEDS ORDERED: ACETAMINOPHEN 325 MG TABLET PO PRN (01:00)
[2020-11-14] MEDS ORDERED: CHLORDIAZEPOXIDE 25 MG CAPSULE PO PRN (01:00)
[2020-11-14] MEDS: SODIUM CHLORIDE 0.9% 1,000 ML IV SCH ×3 (01:11→23:59)
--- NOTE | 2020-11-14 02:00 | NUR ---
pt moved to hospital bed. pt also up to use restroom. has steady gait but shakey from withdraw.
[2020-11-14] MEDS ORDERED: LORazepam 2 MG/ML, 1ML ONE ×4 (02:17→21:05)
[2020-11-14] MEDS: LORazepam 2 MG/ML, 1ML IVPush PRN ×4 (02:19→21:07)
--- NOTE | 2020-11-14 02:24 | NUR ---
pt with c/o increased shakiness, ISLAS, "I feel like I could have a seizure but not a big one", and starting to see things that aren't there. HR 120's. pt states he has taken librium before and states it lasts longer then ativan. Spoke with Samara in pharmacy, unable to give librium due to hospital being out. CIWA done and medicated per emar.
--- NOTE | 2020-11-14 02:30 | NUR ---
PT REQUESTING JUICE. H20 AND JUICE GIVEN.
--- NOTE | 2020-11-14 02:33 | NUR ---
REPORTS FROM ALEX WINSLOW, PT CARE TRANSFERRED AT THIS TIME.
--- NOTE | 2020-11-14 02:35 | NUR ---
REPORT TO ARACELY WINSLOW
--- NOTE | 2020-11-14 03:49 | NUR ---
Patient is resting comfortably in bed. Bed in lowest, rails engaged, call light on lap. EYES CLOSED, EVEN AND UNLABORED RESPIRATIONS. WCTM.
--- NOTE | 2020-11-14 04:30 | NUR ---
REPORT FROM ARACELY WINSLOW
--- NOTE | 2020-11-14 04:30 | NUR ---
REPORT TO LARISSA RN, PT CARE TRANSFERRED AT THIS TIME. PT NAD, Patient is resting comfortably in bed. Bed in lowest, rails engaged, call light on lap. EYES CLOSED, EVEN AND UNLABORED RESPIRATIONS NOTED. MILAGROS.
--- NOTE | 2020-11-14 05:26 | NUR ---
PT RESTING COMFORTABLY IN BED WITH EYES CLOSED, MILAGROS MARR
[2020-11-14 06:36] LABS: BASOPHILS % (AUTO) 1 % (0-1); EOSINOPHILS % (AUTO) 0 % (1-7); LYMPHOCYTES % (AUTO) 10 % (22-44); MEAN CORPUSCULAR HEMOGLOBIN 31.8 pg (27.5-34.5); MEAN CORPUSCULAR HGB CONC 35.3 g/dL (33.2-36.2); MEAN PLATELET VOLUME 8.8 fL (7.4-10.4); MONOCYTES % (AUTO) 9 % (2-9); NEUTROPHILS % (AUTO) 80 % (42-75); PLATELET COUNT 285 x10^3/uL (130-400); RED CELL DISTRIBUTION WIDTH 14.6 % (9.4-14.8)
[2020-11-14 06:39] LABS: ANION GAP 11 mmol/L (5-15); CHLORIDE 100 mmol/L (98-107); CREATININE 1.11 mg/dL (0.7-1.3)
--- NOTE | 2020-11-14 07:05 | NUR ---
SZ PADS IN PLACE
--- NOTE | 2020-11-14 08:50 | NUR ---
PT EDITH PO BREAKFAST WELL. PT TREMULOUS AND REPORTS ANXIETY. PT MEDICATED PER MAR
--- NOTE | 2020-11-14 09:03 | NUR ---
PT RESTING COMFOORTABLY IN BED. SZ PADS IN PLACE
--- NOTE | 2020-11-14 09:10 | NUR ---
REPORT RC'VD FROM RONALD WINSLOW.
[2020-11-14] MEDS ORDERED: THIAMINE 100MG TABLET ONE ×2 (09:52→20:58)
[2020-11-14] MEDS ORDERED: SENNA/DOCUSATE TABLET ONE (09:52)
[2020-11-14] MEDS: THIAMINE 100MG TABLET PO SCH ×2 (10:04→21:01)
[2020-11-14] MEDS: SENNA/DOCUSATE TABLET PO SCH (10:04)
[2020-11-14] MEDS: FOLIC ACID 1 MG TABLET PO SCH (10:46)
[2020-11-14] MEDS: MULTIVITAMINS/MINERALS TABLET PO SCH (10:46)
--- NOTE | 2020-11-14 10:46 | NUR ---
MORE FRUIT AND JUICE AND JELLO PROVIDED TO PT PER HIS REQUEST. PT REPORTS FEELING SHAKY, REQUESTING MORE ATIVAN. WILL MEDICATE PER PRN ORDERS. Addendum: 11/14/20 at 1139 by DARRICK UNABLE TO MEDICATE PT WITH [facility].
--- NOTE | 2020-11-14 13:05 | NUR ---
PT HAS BEEN RESTING IN [facility], AWAKENS EASILY. LUNCH TRAY PROVIDED. NO OTHER NEEDS AT THIS TIME.
--- NOTE | 2020-11-14 14:30 | NUR ---
WATER PROVIDED TO PT. VSS, NO OTHER NEEDS AT THIS TIME.
--- NOTE | 2020-11-14 15:14 | NUR ---
Report from Kendra WINSLOW
--- NOTE | 2020-11-14 19:54 | NUR ---
pt sleeping, resp even and unlabored.
[2020-11-14] MEDS ORDERED: ONDANSETRON 2MG/ML, 2ML ONE (21:04)
[2020-11-14] MEDS ORDERED: MAALOX/HYOSCYAMINE/LIDOCAINE 45 ML BTL ONE (21:04)
--- NOTE | 2020-11-14 21:06 | NUR ---
PT REQUESTING GI COCKTAIL, STATES 'ITS HELPED ME IN THE PAST". [facility] GAVE VERBAL ORDER FOR ONE TIME GI COCKTAIL. VERBAL ORDER REPEATED.
[2020-11-14] MEDS ORDERED: MAALOX/HYOSCYAMINE/LIDOCAINE 45 ML BTL PO ONE (21:30)
--- NOTE | 2020-11-14 22:34 | NUR ---
BREAK RN: PT RESTING IN ROOM. VS STABLE. CALL LIGHT IN PLACE. WILL CONTINUE TO MONITOR WHILE PRIMARY RN IS ON BREAK.
--- NOTE | 2020-11-14 23:20 | NUR ---
REPORT TO THAO WINSLOW
[2020-11-15] VITALS: BP 127/83
[2020-11-15] MEDS ORDERED: FLUO20CA19 PO (01:09)
[2020-11-15] MEDS: LORazepam 2 MG/ML, 1ML IVPush PRN ×2 (01:16→06:16)
[2020-11-15 04:45] LABS: ANION GAP 5 mmol/L (5-15); CALCIUM 8.6 mg/dL (8.5-10.1); CHLORIDE 102 mmol/L (98-107); CREATININE 0.64 mg/dL (0.7-1.3)
[2020-11-15] MEDS ORDERED: POTASSIUM CHLORIDE 20 MEQ TAB.ER.PRT PO ONE (07:00)
[2020-11-15 07:38] VITALS: BP 109/66
[2020-11-15] MEDS: SODIUM CHLORIDE 0.9% 1,000 ML IV SCH ×2 (08:00→18:46)
[2020-11-15] MEDS: SENNA/DOCUSATE TABLET PO SCH (09:00)
[2020-11-15] MEDS: FOLIC ACID 1 MG TABLET PO SCH (10:06)
[2020-11-15] MEDS: MULTIVITAMINS/MINERALS TABLET PO SCH (10:07)
[2020-11-15] MEDS: THIAMINE 100MG TABLET PO SCH ×2 (10:07→20:21)
[2020-11-15] MEDS: HEPARIN 5,000 UNITS/ML, 1ML SQ SCH ×2 (10:08→16:00)
[2020-11-15] MEDS: DIAZEPAM 10 MG TABLET PO SCH ×3 (10:08→20:21)
[2020-11-15 12:27] VITALS: BP 128/77
[2020-11-15] MEDS ORDERED: DIAZEPAM 5 MG TABLET PO SCH (16:00)
[2020-11-15 18:43] VITALS: BP 134/80
[2020-11-16] MEDS: SODIUM CHLORIDE 0.9% 1,000 ML IV SCH ×2 (00:30→08:00)
[2020-11-16] MEDS: LORazepam 2 MG/ML, 1ML IVPush PRN (00:32)
[2020-11-16] MEDS: HEPARIN 5,000 UNITS/ML, 1ML SQ SCH ×2 (00:32→08:05)
[2020-11-16 02:13] VITALS: BP 129/84
[2020-11-16] MEDS: DIAZEPAM 10 MG TABLET PO SCH (03:29)
[2020-11-16 04:38] LABS: ALBUMIN 3.1 g/dL (3.4-5.0); ANION GAP 6 mmol/L (5-15); CALCIUM 8.5 mg/dL (8.5-10.1); CHLORIDE 98 mmol/L (98-107)
[2020-11-16 04:41] LABS: ALANINE AMINOTRANSFERASE 91 U/L (12-78); ALKALINE PHOSPHATASE 70 U/L (45-117); BILIRUBIN,TOTAL 0.9 mg/dL (0.2-1.0); CREATININE 0.52 mg/dL (0.7-1.3); TOTAL PROTEIN 6.3 g/dL (6.4-8.2)
[2020-11-16] MEDS ORDERED: POTASSIUM CHLORIDE 20 MEQ TAB.ER.PRT PO ONE (07:00)
[2020-11-16 07:23] VITALS: BP 126/82
[2020-11-16] MEDS: THIAMINE 100MG TABLET PO SCH (08:02)
[2020-11-16] MEDS: MULTIVITAMINS/MINERALS TABLET PO SCH (08:03)
[2020-11-16] MEDS: FOLIC ACID 1 MG TABLET PO SCH (08:04)
[2020-11-16] MEDS: SENNA/DOCUSATE TABLET PO SCH (08:04)
[2020-11-16] MEDS ORDERED: DIAZ5TAB4 PO ×5 (08:57→10:03)
[2020-11-16] MEDS ORDERED: DIAZEPAM 5 MG TABLET PO SCH ×2 (09:00)
== END 2020-11-16 10:33 | disposition home or self-care (01) | DRG 92 ==
LOC: ED 20:04 → EDIP 11-14 00:48 → 4WST 11-14 23:38
PROVIDERS: ADMIT Internal Medicine; ATTEND Family Medicine
DX: G25.2 Other specified forms of tremor (principal); F10.239 Alcohol dependence with withdrawal, unspecified; K70.0 Alcoholic fatty liver; E87.6 Hypokalemia; F17.290 Nicotine dependence, other tobacco product, uncomplicated; F12.90 Cannabis use, unspecified, uncomplicated; Y90.6 Blood alcohol level of 120-199 mg/100 ml
CPT/HCPCS: 36415; 80048; 80053; 80320; 83690; 83735; 85025; 93005; 96361; 96374; 96375; G0378; J1644; J2405; J3411; C9113; G0480; J2060; J7030